=== PATIENT | female | born 1980 | race African-American/Black ===

== ENCOUNTER 2017-01-12 07:40 | Emergency (ER) | payer MEDICAID ==
[2017-01-12 07:47] VITALS: BP 133/75
--- NOTE | 2017-01-12 08:03 | RAD ---
Right foot, 3 views, 01/12/2017: History: Trauma, pain There is a minimal hallux valgus deformity. No fracture or dislocation is identified. No radiopaque foreign body is evident in the soft tissues. There is mild subcutaneous edema. IMPRESSION: No acute bony abnormality is detected.
[2017-01-12] MEDS ORDERED: DIPHTH,PERTUSS(ACELL),TET TOX 0.5 ML DISP.SYRIN. VAX IM ONE (08:15)
[2017-01-12] MEDS ORDERED: HYDROcodone/APAP 5/325MG 1 TAB TABLET PO ONE (08:15)
[2017-01-12] MEDS ORDERED: CIPR500T94 PO (08:18)
--- NOTE | 2017-01-12 08:20 | PHYS DOC ---
Past Medical History Past Medical History: No Pertinent History Past Surgical History: Additional Past Surgical Histo: x4 Alcohol Use: None Drug Use: None Adult General Chief Complaint Chief Complaint: FOOT INJURY PAIN [facility] HPI Patient is a 36 year old female presents to the emergency department with a history of stepping on 2 nails last yesterday. Patient states she had her shoe on, pulled the nails out. She states she had taken Tylenol PM last night with minimal relief, she states it only made her sleepy. She denies drainage or discharge from the site. She states she is unable to bear weight on the foot. She is unsure when her last tetanus immunization occurred. She states her LNMP was 8/13 she continues to add that she took a home test last night and it was negative. Review of Systems Review of Systems Constitutional: Denies fever or chills [] Eyes: Denies change in visual acuity, redness, or eye pain [] HENT: Denies nasal congestion or sore throat [] Respiratory: Denies cough or shortness of breath [] Cardiovascular: No additional information not addressed in HPI [] GI: Denies abdominal pain, nausea, vomiting, bloody stools or diarrhea [] : Denies dysuria or hematuria [] Musculoskeletal: Denies back pain or joint pain [] Integument: Denies rash or skin lesions. C/o stepping on 2 nails with her right foot Neurologic: Denies headache, focal weakness or sensory changes [] Endocrine: Denies polyuria or polydipsia [] Current Medications Current Medications Current Medications Medications (Trade) Dose Ordered Sig/Chip Start Time Stop Time Status Last Admin Dose Admin Acetaminophen/ Hydrocodone Bitart (Lortab 5/325) 1 tab 1X ONCE 01/12/17 08:15 01/12/17 08:16 DC 01/12/17 08:11 1 TAB Diphtheria/ Tetanus/Acell Pertussis (Boostrix) 0.5 ml ONCE ONCE 01/12/17 08:15 01/12/17 08:16 DC 01/12/17 08:10 0.5 ML Allergies Allergies Allergies Coded Allergies Type Severity Reaction Last Updated Verified No Known Drug Allergies 09/23/15 No Physical Exam Physical Exam Constitutional: Well developed, well nourished, no acute distress, non-toxic appearance. [] HENT: Normocephalic, atraumatic, bilateral external ears normal, oropharynx moist, no oral exudates, nose normal. [] Eyes: PERRLA, EOMI, conjunctiva normal, no discharge. [] Neck: Normal range of motion, no tenderness, supple, no stridor. [] Cardiovascular:Heart rate regular rhythm Lungs & Thorax: no respiratory distress noted Skin: Warm, dry, no erythema, no rash. Bottom of right foot in the arch has 2 puncture wounds with redness and tenderness noted. No drainage or discharge noted from the site. Back: No tenderness Extremities: No tenderness, no cyanosis, no clubbing, ROM intact, no edema. [] Neurologic: Alert and oriented X 3, normal motor function, normal sensory function, no focal deficits noted. [] Psychologic: Affect normal, judgement normal, mood normal. [] Current Patient Data Vital Signs Vital Signs Date Time Temp Pulse Resp B/P (MAP) Pulse Ox O2 Delivery O2 Flow Rate FiO2 01/12/17 07:47 98.8 105 20 99 Room Air 98.8 EKG EKG [] Radiology/Procedures Radiology/Procedures [][facility] [address] [place] [address] IMAGING REPORT Signed PATIENT: CASSIE LY ACCOUNT: [id number] : 1980 LOCATION: ER AGE: 36 SEX: F EXAM STATUS: PRE ER ORD. PHYSICIAN: FAZAL IVEY APRN REASON: pain and injury PROCEDURE: FOOT RIGHT 3V Right foot, 3 views, 01/12/2017: History: Trauma, pain There is a minimal hallux valgus deformity. No fracture or dislocation is identified. No radiopaque foreign body is evident in the soft tissues. There is mild subcutaneous edema. IMPRESSION: No acute bony abnormality is detected. DICTATED and SIGNED BY: MAKENZIE HAYNES MD DATE: 01/12/17 0800 CC: FAZAL IVEY APRN; NO PCP ~ Course & Med Decision Making Course & Med Decision Making Pertinent Labs and Imaging studies reviewed. (See chart for details) Patient was updated with a tdap here in the emergency department. Patient was provided with Gerlach for pain. Foot was soaked in betadine and saline for 20 minutes. X-rays was negative for abnormality per radiologist. She will be discharged home in stable condition. Patient will be placed on Cipro with recommendations for Ibuprofen for pain, ice packs on 20 minutes and off 20 minutes several times a day. Elevation as much as possible. Warm episom salt soaks 4-5 times a day. Patient will be provided with Tylenol #3 for severe pain, patient was provided with precautions with this medication. Patient was provided with signs and symptoms to return to the emergency department. Patient agrees with discharge instructions, treatment regimen and followup recommendations. All questions and concerns answered at patients beside. [] Dragon Disclaimer Dragon Disclaimer This electronic medical record was generated, in whole or in part, using a voice recognition dictation system. Departure Departure Impression: Primary Impression: Puncture wound of foot, right Disposition: 01 HOME, SELF-CARE Condition: STABLE Referrals: NO PCP (PCP) Patient Instructions: Puncture Wound, [id number] Additional Instructions: Activity as tolerated Medication as prescribed, Cipro, take this medication until it is completely gone Ibuprofen for pain Tylenol #3 for severe pain this medication will cause drowsiness do not take if you need to be alert and oriented. This medication may also cause constipation, make sure you drink plenty of water and high fiber diet. ice packs on 20 minutes and off 20 minutes several times a day. Elevation as much as possible. Warm episom salt soaks 4-5 times a day. Followup with primary care provider in 3-5 days Return to emergency department as needed for signs and symptoms that become worse. Scripts Acetaminophen With Codeine (TYLENOL WITH CODEINE #3 TABLET) 1 Each Tablet 1 TAB PO PRN Q4HRS Y for PAIN, #15 TAB Prov: FAZAL IVEY APRN 01/12/17 Ciprofloxacin Hcl (CIPRO) 500 Mg Tablet 1 TAB PO BID, #20 TAB Prov: FAZAL IVEY APRN 01/12/17 Problem Qualifiers Primary Impression: Puncture wound of foot, right Encounter type: initial encounter Qualified Codes: S91.331A - Puncture wound without foreign body, right foot, initial encounter FAZAL IVEY APRN Jan 12, 2017 08:20
[2017-01-12] MEDS ORDERED: ACET-704 PO (08:30)
== END 2017-01-12 08:42 | disposition home or self-care (01) ==
LOC: ER 07:40
DX: S91.331A Puncture wound without foreign body, right foot, initial encounter (principal); W45.0XXA Nail entering through skin, initial encounter; Y93.89 Activity, other specified; Y99.8 Other external cause status; Y92.89 Other specified places as the place of occurrence of the external cause
CPT/HCPCS: 73630; 90471; 90715; 99284-25